=== PATIENT | male | born 1975 | race Two or more races ===

== ENCOUNTER → 2021-06-30 | Outpatient (CLI) | payer BC ==
--- NOTE | 2021-06-30 12:17 | RAD ---
Exam performed: Complete abdominal sonogram. Indication:Left-sided abdominal pain Date of exam: 06/30/2021 . Comparison: None available Technique:Real time perry scale imaging of the abdomen is performed and images are obtained. Findings : The liver is normal in size and echogenicity without focal lesions. And measures 15.1 cm in length No intra- or extrahepatic biliary dilatation is present. The gallbladder appears normal. Pancreas is poorly visualized due to overlying bowel gas The spleen is normal in size. Both kidneys are unremarka ble without evidence for hydronephrosis. Right kidney [id number] x 4.5 x 6.0 and the left kidney me [id number] x 4.9 x 5.5. The inferior vena cava and aorta appear normal. Impression: Suboptimal evaluation of the retroperitoneal structures, otherwise unremarkable abdominal ultrasound. Electronically signed by: Joan Niño MD (06/30/2021 12:14 PM) [id number]
== END ==
LOC: US 09:04
PROVIDERS: ATTEND Family Medicine
DX: R10.11 Right upper quadrant pain (principal)
CPT/HCPCS: 76700